=== PATIENT | female | born 1960 | race African-American/Black ===

== ENCOUNTER 2017-02-16 13:50 | Emergency (ER) | payer SELFPAY ==
[~2017-02-16] VITALS: Ht 170.2 cm; Wt 81.6 kg
[2017-02-16] MEDS ORDERED: IV NORMAL SALINE 1000ML BAG 1,000 ML IV SCH (14:45)
[2017-02-16 14:48] LABS: BASO # 0.2 x10^3/uL (0.0-0.2); BASO % 1 % (0-3); EOS % 10 % (0-3); HEMATOCRIT 37.9 % (36.0-47.0); HEMOGLOBIN 12.4 g/dL (12.0-15.5); LYMPH # 4.4 x10^3/uL (1.0-4.8); LYMPH % 32 % (24-48); MEAN CORPUSCULAR HEMOGLOBIN 29 pg (25-35); MEAN CORPUSCULAR HGB CONC 33 g/dL (31-37); MEAN CORPUSCULAR VOLUME 88 fL (79-100); MONO % 5 % (0-9); NEUT % 52 % (31-73); PLATELET COUNT 338 x10^3/uL (140-400); RED BLOOD COUNT 4.33 x10^6/uL (3.50-5.40); WHITE BLOOD COUNT 13.7 x10^3/uL (4.0-11.0)
[2017-02-16 15:22] LABS: BILIRUBIN,URINE NEGATIVE (NEG); GLUCOSE,URINE NEGATIVE (NEG); NITRITE,URINE NEGATIVE (NEG); PROTEIN,URINE NEGATIVE (NEG-TRACE)
[2017-02-16 15:30] LABS: BARBITURATES NEG (NEG); BENZODIAZEPINES NEG (NEG); CANNABINOIDS NEG (NEG); COCAINE NEG (NEG); METHADONE NEG (NEG); OPIATES NEG (NEG); PHENCYCLIDINE NEG (NEG)
[2017-02-16] MEDS ORDERED: KETOROLAC 30 MG/ML INJ. IV ONE (15:30)
[2017-02-16 15:33] LABS: BACTERIA,URINE FEW /HPF (0-FEW); RBC,URINE 0 /HPF (0-2); SQUAMOUS EPITHELIAL CELL,UR MOD /LPF; WBC,URINE OCC /HPF (0-4)
[2017-02-16 15:36] LABS: CALCIUM 8.8 mg/dL (8.5-10.1); CREATININE 1.1 mg/dL (0.6-1.0); GFR 62.2; POTASSIUM 3.8 mmol/L (3.5-5.1)
--- NOTE | 2017-02-16 16:09 | EKG ---
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
--- NOTE | 2017-02-16 16:14 | RAD ---
Pelvis, single view, 02/16/2017: History: Fall, back and hip pain No fracture is identified. There is mild degenerative change at the right hip joint. There is minimal spurring in the lower lumbar spine. There is partial sacralization of the right transverse process at L5. IMPRESSION: No acute pelvic abnormality is detected.
[2017-02-16] MEDS ORDERED: HYDR25TA9 PO (17:35)
--- NOTE | 2017-02-16 17:36 | PHYS DOC ---
Past Medical History Past Medical History: Asthma, COPD, Depression Past Surgical History: Tubal ligation, Other Additional Past Surgical Histo: 'multiple cyst removals' Alcohol Use: None Drug Use: None Adult General Chief Complaint Chief Complaint: DIZZY/LIGHT HEADED HPI HPI Patient is a 56 year old [f__sex] who presents with [] Review of Systems Review of Systems Constitutional: Denies fever or chills [] Eyes: Denies change in visual acuity, redness, or eye pain [] HENT: Denies nasal congestion or sore throat [] Respiratory: Denies cough or shortness of breath [] Cardiovascular: No additional information not addressed in HPI [] GI: Denies abdominal pain, nausea, vomiting, bloody stools or diarrhea [] : Denies dysuria or hematuria [] Musculoskeletal: Denies back pain or joint pain [] Integument: Denies rash or skin lesions [] Neurologic: Denies headache, focal weakness or sensory changes [] Endocrine: Denies polyuria or polydipsia [] Current Medications Current Medications Current Medications Medications (Trade) Dose Ordered Sig/Anuj Start Time Stop Time Status Last Admin Dose Admin Ketorolac Tromethamine (Toradol) 30 mg 1X ONCE 02/16/17 15:30 02/16/17 15:37 DC 02/16/17 15:42 30 MG Sodium Chloride 1,000 ml @ 999 mls/hr Q1H1M 02/16/17 14:45 02/16/17 14:57 999 MLS/HR Allergies Allergies Allergies Coded Allergies Type Severity Reaction Last Updated Verified Penicillins Adverse Reaction Intermediate Unknown 02/16/17 Yes amoxicillin Adverse Reaction Intermediate Unknown 02/16/17 Yes Physical Exam Physical Exam Constitutional: Well developed, well nourished, no acute distress, non-toxic appearance. [] HENT: Normocephalic, atraumatic, bilateral external ears normal, oropharynx moist, no oral exudates, nose normal. [] Eyes: PERRLA, EOMI, conjunctiva normal, no discharge. [] Neck: Normal range of motion, no tenderness, supple, no stridor. [] Cardiovascular:Heart rate regular rhythm, no murmur [] Lungs & Thorax: Bilateral breath sounds clear to auscultation [] Abdomen: Bowel sounds normal, soft, no tenderness, no masses, no pulsatile masses. [] Skin: Warm, dry, no erythema, no rash. [] Back: No tenderness, no CVA tenderness. [] Extremities: No tenderness, no cyanosis, no clubbing, ROM intact, no edema. [] Neurologic: Alert and oriented X 3, normal motor function, normal sensory function, no focal deficits noted. [] Psychologic: Affect normal, judgement normal, mood normal. [] Current Patient Data Vital Signs Vital Signs Date Time Temp Pulse Resp B/P (MAP) Pulse Ox O2 Delivery O2 Flow Rate FiO2 02/16/17 17:05 80 18 98 02/16/17 14:03 98.5 213/101 (138) Room Air 98.5 Lab Values Laboratory Tests Test 02/16/17 14:03 02/16/17 14:05 02/16/17 15:10 Urine Collection Type Unknown Urine Color Yellow Urine Clarity Clear Urine pH 6.0 Urine Specific [place] 1.025 Urine Protein Negative mg/dL (NEG-TRACE) Urine Glucose (UA) Negative mg/dL (NEG) Urine Ketones (Stick) Negative mg/dL (NEG) Urine Blood Negative (NEG) Urine Nitrite Negative (NEG) Urine Bilirubin Negative (NEG) Urine Urobilinogen Dipstick 1.0 mg/dL (0.2 mg/dL) Urine Leukocyte Esterase Negative (NEG) Urine RBC 0 /HPF (0-2) Urine WBC Occ /HPF (0-4) Urine Squamous Epithelial Cells Mod /LPF Urine Bacteria Few /HPF (0-FEW) Urine Mucus Mod /LPF Urine Opiates Screen Neg (NEG) Urine Methadone Screen Neg (NEG) Urine Barbiturates Neg (NEG) Urine Phencyclidine Screen Neg (NEG) Urine Amphetamine/Methamphetamine Neg (NEG) Urine Benzodiazepines Screen Neg (NEG) Urine Cocaine Screen Neg (NEG) Urine Cannabinoids Screen Neg (NEG) Urine Ethyl Alcohol Neg (NEG) White Blood Count 13.7 x10^3/uL (4.0-11.0) H Red Blood Count 4.33 x10^6/uL (3.50-5.40) Hemoglobin 12.4 g/dL (12.0-15.5) Hematocrit 37.9 % (36.0-47.0) Mean Corpuscular Volume 88 fL (79-100) Mean Corpuscular Hemoglobin 29 pg (25-35) Mean Corpuscular Hemoglobin Concent 33 g/dL (31-37) Red Cell Distribution Width 15.0 % (11.5-14.5) H Platelet Count 338 x10^3/uL (140-400) Neutrophils (%) (Auto) 52 % (31-73) Lymphocytes (%) (Auto) 32 % (24-48) Monocytes (%) (Auto) 5 % (0-9) Eosinophils (%) (Auto) 10 % (0-3) H Basophils (%) (Auto) 1 % (0-3) Neutrophils # (Auto) 7.1 x10^3uL (1.8-7.7) Lymphocytes # (Auto) 4.4 x10^3/uL (1.0-4.8) Monocytes # (Auto) 0.7 x10^3/uL (0.0-1.1) Eosinophils # (Auto) 1.4 x10^3/uL (0.0-0.7) H Basophils # (Auto) 0.2 x10^3/uL (0.0-0.2) Sodium Level 143 mmol/L (136-145) Potassium Level 3.8 mmol/L (3.5-5.1) Chloride Level 107 mmol/L (98-107) Carbon Dioxide Level 30 mmol/L (21-32) Anion Gap 6 (6-14) Blood Urea Nitrogen 16 mg/dL (7-20) Creatinine 1.1 mg/dL (0.6-1.0) H Estimated GFR (Cockcroft-Gault) 62.2 Glucose Level 88 mg/dL (70-99) Calcium Level 8.8 mg/dL (8.5-10.1) Troponin I Quantitative < 0.017 ng/mL (0.000-0.055) Thyroid Stimulating Hormone (TSH) 0.921 uIU/mL (0.358-3.74) Laboratory Tests 02/16/17 14:05 Laboratory Tests 02/16/17 15:10 EKG EKG [] Radiology/Procedures Radiology/Procedures [] Course & Med Decision Making Course & Med Decision Making Pertinent Labs and Imaging studies reviewed. (See chart for details) [] Dragon Disclaimer Dragon Disclaimer This electronic medical record was generated, in whole or in part, using a voice recognition dictation system. Departure Departure Impression: Primary Impression: Uncontrolled hypertension Additional Impressions: Noncompliance with medication regimen Leukocytosis Depression Contusion of left hip and thigh Disposition: HOME, SELF-CARE Condition: STABLE Referrals: NO PCP (PCP) Patient Instructions: Contusion, Depression, Adult, Hypertension, Leukocytosis Additional Instructions: You have been noncompliant with your blood pressure medication. This means you' re not taking it as previously prescribed. Be aware that it is critically important that you take your medicines as prescribed in this case to control your blood pressure. Your blood blood cell count was 13.7 today. This is elevated, but the result is nonspecific. Follow-up with your doctor to get this rechecked and for further workup as needed. Rest but because your not suicidal you do not require emergency psychiatric evaluation today. Follow-up with community counseling resources and social work to discuss outpatient treatment. You have a bruise G her left thigh and hip area but no evidence of fracture on your x-rays. Take ibuprofen every 6 hours as needed. Follow-up with your doctor or the medical clinic of your choice in 1-2 days. Return immediately for new severe worsening symptoms. Scripts Hydrochlorothiazide (HYDROCHLOROTHIAZIDE TABLET ) 25 Mg Tablet 25 MG PO DAILY for ELEVATED BP, SEE COMMENTS, #30 TAB 0 Refills Prov: MAGUE GODOY MD 02/16/17 Problem Qualifiers MAGUE GODOY MD Feb 16, 2017 17:36
[2017-02-16 17:57] VITALS: BP 182/88
--- NOTE | 2017-02-17 08:18 | RAD ---
Portable chest, 02/16/2017: History: Dizziness with a fall The heart size and pulmonary vascularity are normal. No pulmonary infiltrate is seen. There is no evidence of pleural fluid or pneumothorax. IMPRESSION: No acute cardiopulmonary abnormality is detected.
== END 2017-02-16 17:58 | disposition home or self-care (01) ==
LOC: ER 13:50
DX: S70.02XA Contusion of left hip, initial encounter (principal); S70.12XA Contusion of left thigh, initial encounter; I10 Essential (primary) hypertension; D72.829 Elevated white blood cell count, unspecified; F32.9 Major depressive disorder, single episode, unspecified; J44.9 Chronic obstructive pulmonary disease, unspecified; Z88.0 Allergy status to penicillin; Z91.14 Patient's other noncompliance with medication regimen; Z88.1 Allergy status to other antibiotic agents; X58.XXXA Exposure to other specified factors, initial encounter; Y93.89 Activity, other specified; Y92.89 Other specified places as the place of occurrence of the external cause; Y99.8 Other external cause status
CPT/HCPCS: 36415; 71010; 72170; 80048; 80307; 81001; 84443; 84484; 85025; 93005; 96361; 96374; 99285; J1885; J7030; G0479

== ENCOUNTER → 2017-02-21 | Outpatient (CLI) | payer OTHER ==
[2017-02-16 17:57] VITALS: BP 182/88
[~2017-02-21] MED LIST: HYDR25TA9 PO
--- NOTE | 2017-02-21 11:59 | RAD ---
Indication shortness of breath. Chest pain. Symptoms for several months. Frontal and lateral views of the chest were obtained. Comparison is made to an exam 02/16/2017. The heart and pulmonary vessels appear normal. The lungs are clear of acute infiltrates. There has not been a significant change when compared to the previous exam. IMPRESSION: No acute finding in the chest.
== END | disposition home or self-care (01) ==
LOC: RAD 10:06
PROVIDERS: ATTEND Neuromusculoskeletal Medicine, Sports Medicine
DX: R07.9 Chest pain, unspecified (principal)
CPT/HCPCS: 71020

== ENCOUNTER 2017-03-14 20:55 | Emergency (ER) | payer SELFPAY ==
[~2017-03-14] VITALS: Ht 170.2 cm; Wt 81.6 kg
[2017-03-14] MEDS ORDERED: KETOROLAC 30 MG/ML INJ. IV ONE (21:45)
[2017-03-14] MEDS ORDERED: AZIT250T6 PO (23:15)
[2017-03-14] MEDS ORDERED: BENZ100C PO (23:15)
--- NOTE | 2017-03-14 23:16 | PHYS DOC ---
Past Medical History Past Medical History: Asthma, COPD, Depression Past Surgical History: Tubal ligation, Other Additional Past Surgical Histo: 'multiple cyst removals' Alcohol Use: None Drug Use: None Adult General Chief Complaint Chief Complaint: CHEST WALL PAIN [facility] HPI Patient is a 56 year old [f__sex] who presents with [] Review of Systems Review of Systems Constitutional: Denies fever or chills [] Eyes: Denies change in visual acuity, redness, or eye pain [] HENT: Denies nasal congestion or sore throat [] Respiratory: Denies cough or shortness of breath [] Cardiovascular: No additional information not addressed in HPI [] GI: Denies abdominal pain, nausea, vomiting, bloody stools or diarrhea [] : Denies dysuria or hematuria [] Musculoskeletal: Denies back pain or joint pain [] Integument: Denies rash or skin lesions [] Neurologic: Denies headache, focal weakness or sensory changes [] Endocrine: Denies polyuria or polydipsia [] All other systems were reviewed and found to be within normal limits, except as documented in this note. Current Medications Current Medications Current Medications Medications (Trade) Dose Ordered Sig/Anuj Start Time Stop Time Status Last Admin Dose Admin Ketorolac Tromethamine (Toradol) 30 mg 1X ONCE 03/14/17 21:45 03/14/17 21:46 DC 03/14/17 21:52 30 MG Allergies Allergies Allergies Coded Allergies Type Severity Reaction Last Updated Verified Penicillins Adverse Reaction Intermediate Unknown 02/16/17 Yes amoxicillin Adverse Reaction Intermediate Unknown 02/16/17 Yes Physical Exam Physical Exam Constitutional: Well developed, well nourished, no acute distress, non-toxic appearance. [] HENT: Normocephalic, atraumatic, bilateral external ears normal, oropharynx moist, no oral exudates, nose normal. [] Eyes: PERRLA, EOMI, conjunctiva normal, no discharge. [] Neck: Normal range of motion, no tenderness, supple, no stridor. [] Cardiovascular:Heart rate regular rhythm, no murmur [] Lungs & Thorax: Bilateral breath sounds clear to auscultation [] Abdomen: Bowel sounds normal, soft, no tenderness, no masses, no pulsatile masses. [] Skin: Warm, dry, no erythema, no rash. [] Back: No tenderness, no CVA tenderness. [] Extremities: No tenderness, no cyanosis, no clubbing, ROM intact, no edema. [] Neurologic: Alert and oriented X 3, normal motor function, normal sensory function, no focal deficits noted. [] Psychologic: Affect normal, judgement normal, mood normal. [] Current Patient Data Vital Signs Vital Signs Date Time Temp Pulse Resp B/P (MAP) Pulse Ox O2 Delivery O2 Flow Rate FiO2 03/14/17 21:52 78 18 125/63 (83) 03/14/17 21:06 98.9 98 Room Air 98.9 EKG EKG [] Radiology/Procedures Radiology/Procedures [] Course & Med Decision Making Course & Med Decision Making Pertinent Labs and Imaging studies reviewed. (See chart for details) [] Dragon Disclaimer Dragon Disclaimer This electronic medical record was generated, in whole or in part, using a voice recognition dictation system. Departure Departure Impression: Primary Impression: Pneumonia Disposition: HOME, SELF-CARE Condition: GOOD Referrals: NO PCP (PCP) Patient Instructions: Pneumonia, Adult Additional Instructions: You have pneumonia. Finish antibiotic as prescribed. Use Mucinex DM as needed for cough and Tessalon as needed for uncontrolled cough. Rest and drink plenty of fluids. Follow-up with your doctor in 1-2 days and return immediately for new severe worsening symptoms Scripts Benzonatate (TESSALON PERLE) 100 Mg Capsule 2 CAP PO TID, #42 CAP Prov: MAGUE GODOY MD 03/14/17 Azithromycin (AZITHROMYCIN TABLET) 250 Mg Tablet 1 PKG PO UD, #6 TAB Take 2 pills the first day and one pill a day for the following 4 days Prov: MAGUE GODOY MD 03/14/17 MAGUE GODOY MD Mar 14, 2017 23:16
[2017-03-14] MEDS ORDERED: HYDROcodone/APAP 5/325MG 1 TAB TABLET PO ONE (23:30)
[2017-03-14 23:40] VITALS: BP 107/56
--- NOTE | 2017-03-15 06:24 | EKG ---
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
--- NOTE | 2017-03-15 07:51 | RAD ---
EXAM: Chest 2 views. HISTORY: Chest pain and cough. COMPARISON: 02/21/2017. FINDINGS: Frontal and lateral views of the chest are obtained. There are minimal interstitial opacities in the bases which may be technical or reflect mild infiltrates. There is no consolidation. There is no pneumothorax or pleural effusion. The heart is not enlarged. Instrumented anterior cervical discectomy and fusion changes are partially visualized. IMPRESSION: 1. Correlate clinically for atypical pneumonia.
== END 2017-03-15 00:11 | disposition home or self-care (01) ==
LOC: ER 20:55
DX: J18.9 Pneumonia, unspecified organism (principal); J44.9 Chronic obstructive pulmonary disease, unspecified; Z88.0 Allergy status to penicillin; Z88.1 Allergy status to other antibiotic agents; Z98.51 Tubal ligation status
CPT/HCPCS: 71020; 93005; 96374; 99284; J1885

== ENCOUNTER → 2017-04-13 | Outpatient (CLI) | payer OTHER | END | disposition home or self-care (01) | LOC: PF 08:23 | DX: J45.909 Unspecified asthma, uncomplicated (principal); F17.200 Nicotine dependence, unspecified, uncomplicated | CPT/HCPCS: 94010; 94729 ==

== ENCOUNTER 2017-04-29 23:04 | Emergency (ER) | payer SELFPAY, OTHER ==
[2017-04-29] MEDS: tiZANidine 4 MG TABLET. PO (23:31)
== END 2017-04-29 23:47 | disposition home or self-care (01) ==
LOC: ER 23:04
DX: M54.32 Sciatica, left side (principal); J44.9 Chronic obstructive pulmonary disease, unspecified; F32.9 Major depressive disorder, single episode, unspecified; Z98.51 Tubal ligation status; Z88.0 Allergy status to penicillin; Z88.1 Allergy status to other antibiotic agents
CPT/HCPCS: 99283

== ENCOUNTER → 2017-05-30 | Outpatient (CLI) | payer OTHER | END | disposition home or self-care (01) | LOC: RAD 08:20 | DX: M25.552 Pain in left hip (principal) | CPT/HCPCS: 73502 ==

== ENCOUNTER 2017-06-20 18:14 | Emergency (ER) | payer BC, OTHER | END 2017-06-20 18:56 | disposition left against medical advice (07) | LOC: ER 18:14 | DX: R07.89 Other chest pain (principal); Z53.21 Procedure and treatment not carried out due to patient leaving prior to being seen by health care provider ==